=== PATIENT | female | born 1980 | race African-American/Black ===

== ENCOUNTER 2017-06-15 13:28 | Emergency (ER) | payer OTHER ==
[~2017-06-15] VITALS: Ht 160 cm; Wt 83.9 kg
[~2017-06-15 13:28] MED LIST: AMOXICILLIN 50500 M1 PO; AMOXICILLIN 50500 MG PO; DIFLUCAN200 MG PO; NAPROSYN500 MG PO
[2017-06-15] MEDS ORDERED: BACTRIM DS TAB1 EACH PO (14:52)
== END 2017-06-15 15:20 | disposition home or self-care (01) ==
LOC: ER 13:28
DX: L03.011 Cellulitis of right finger (principal)

== ENCOUNTER 2017-06-30 17:08 | Emergency (ER) | payer OTHER ==
[~2017-06-30] VITALS: Ht 160 cm; Wt 81.7 kg
[~2017-06-30 17:08] MED LIST changes: +BACTRIM DS TAB1 EACH PO
== END 2017-06-30 18:43 | disposition home or self-care (01) ==
LOC: ER 17:08
DX: L03.011 Cellulitis of right finger (principal)